=== PATIENT | female | born 1965 | race Caucasian/White ===

== ENCOUNTER 2017-05-08 18:00 | Emergency (ER) | payer BC ==
[2017-05-08] MEDS ORDERED: TYLENOL 325 MG PO ONE (18:42)
[2017-05-08] MEDS ORDERED: Sodium Chloride 0.9% 1000 ML 1,000 ML IV STA (18:42)
[2017-05-08] MEDS ORDERED: Sodium Chloride 0.9% 1000 ML 1,000 ML ONE (18:43)
[2017-05-08] MEDS ORDERED: TYLENOL 325 MG ONE (18:43)
[2017-05-08] MEDS ORDERED: PROVENTIL 2.5 MG/3 ML NEB IH ONE ×2 (18:51→18:58)
[2017-05-08] MEDS ORDERED: Vistaril 50 MG/ML IM ONE (18:52)
[2017-05-08] MEDS ORDERED: VISTARIL 100MG/2ML IM ONE (18:54)
--- NOTE | 2017-05-08 18:59 | ERPHSYRPT ---
- History of Present Illness Source: patient, family () Patient Subjective Stated Complaint: pt states she has had cough and fever for the past 24 hrs. pt states she has become worse over the last few hours. Triage Nursing Assessment: pt flushed, warm, dry. lung sounds clear and equal. pt febrile at this time. Timing/Duration: today Severity: severe Hx Tetanus, Diphtheria Vaccination/Date Given: Yes (unknown) Hx Influenza Vaccination/Date Given: No Hx Pneumococcal Vaccination/Date Given: No Immunizations Up to Date: Yes <RENETTA BEASLEY - Last Filed: 05/08/17 20:00> <FILEMON ALICIA - Last Filed: 05/08/17 20:56> - History of Present Illness Time Seen by Provider: 05/08/17 18:41 Physician History: CC: fever Hx: 51 y/o patient of KYREE Queen and DR Buckley. She has hx of vulvar CA. 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 She has fever, cough, diarrhea, sore throat, and myalgias all worsened today. She has fever and chills. She is a diabetic on metformin. She has chronic left hip pain and has seen Dr Buckley to arrange an injection. She fell in the tub today and the pain was worse before and after but no discreet injury. The pain in the left hip is severe. Limits ROM. Was able to walk with difficulty. (RENETTA BEASLEY) Allergies/Adverse Reactions: hydrocodone [From Vicodin] Allergy (Verified 05/08/17 18:26) Home Medications: Metformin HCl 500 mg [Glucophage 500 MG] 500 mg PO BID 12/25/15 [History] - Review of Systems Constitutional: Fever, Chills, Fatigue, Malaise, Weakness Eyes: No Symptoms Ears, Nose, & Throat: Throat Pain Respiratory: Cough Cardiac: No Chest Pain Abdominal/Gastrointestinal: Diarrhea, No Abdominal Pain, No Nausea, No Vomiting Genitourinary Symptoms: No Dysuria Musculoskeletal: Joint Pain (left hip), No Back Pain, No Neck Pain, No Injury, No Joint Redness Skin: No Rash Neurological: Headache, No Focal Weakness, No Parasthesia All Other Systems: Reviewed and Negative <RENETTA BEASLEY - Last Filed: 05/08/17 20:00> - Past Medical History Pertinent Past Medical History: Yes Neurological History: No Pertinent History ENT History: No Pertinent History Cardiac History: No Pertinent History Respiratory History: No Pertinent History Endocrine Medical History: Diabetes Type II Musculoskeletal History: No Pertinent History GI Medical History: No Pertinent History History: No Pertinent History Psycho-Social History: No Pertinent History Female Reproductive Disorders: Cervical Cancer, Uterine Cancer Other Medical History: vulvar cancer - Past Surgical History Past Surgical History: Yes Neuro Surgical History: No Pertinent History Cardiac: No Pertinent History Respiratory: No Pertinent History Gastrointestinal: Cholecystectomy Genitourinary: No Pertinent History Musculoskeletal: No Pertinent History Female Surgical History: Section, Tubal Ligation, Other Other Surgical History: ablation, vulvar biopsy - Social History Smoking Status: Never smoker Exposure to second hand smoke: Yes Drug Use: none Patient Lives Alone: No - Female History Hx Now: No <RENETTA BEASLEY - Last Filed: 05/08/17 20:00> - Physical Exam General Appearance: alert Eye Exam: PERRL/EOMI Ears, Nose, Throat Exam: dry mucous membranes Neck Exam: normal inspection, non-tender, supple, No meningismus, No midline tenderness Respiratory Exam: normal breath sounds, lungs clear, other (tachypneic hyperventilating) Cardiovascular Exam: regular rate/rhythm Gastrointestinal/Abdomen Exam: soft, No tenderness, No distention, No mass, No guarding Extremity Exam: normal inspection, limited range of motion (left hip), tenderness (left hip), No calf tenderness, No pedal edema Neurologic Exam: alert, oriented x 3, cooperative, sensation nml, No motor deficits Skin Exam: warm, dry, No rash SpO2 Interpretation: normal SpO2: 100 Oxygen Delivery: Room Air <BEASLEYRENETTAAVILA - Last Filed: 05/08/17 20:00> - Nursing Vital Signs Nursing Vital Signs: Initial Vital Signs Pulse Rate 110 H 05/08/17 18:21 Respiratory Rate 20 05/08/17 18:21 Blood Pressure 166/89 05/08/17 18:21 O2 Sat by Pulse Oximetry 100 05/08/17 18:21 Pain Scale Pain Intensity 10 - Course Nursing assessment & vital signs reviewed: Yes - Radiology Exams cxr X-ray Interpretation: Reviewed by me (mild RLL A/I) left hip/pelvis X-ray Interpretation: Reviewed by me (left hip osteophytes, no fx) <RENETTA BEASLEY - Last Filed: 05/08/17 20:00> Ordered Tests: Active Orders 24 hr Category Date Time Status Clean Catch Urine Specimen STAT Care 05/08/17 18:42 Active IV Insertion STAT Care 05/08/17 18:42 Active Pulse Oximetry (ED) STAT Care 05/08/17 18:50 Active CHEST 2 VIEWS (PA AND LAT) Stat Exams 05/08/17 18:50 Taken HIP UNI (2V) INCL PEL IF DONE Stat Exams 05/08/17 18:51 Taken CBC W DIFF Stat Lab 05/08/17 18:54 Completed CMP Stat Lab 05/08/17 18:54 Completed Lactic Acid Stat Lab 05/08/17 19:21 Results Manual Differential NC Stat Lab 05/08/17 18:54 Completed UA W/ MICROSCOPIC Stat Lab 05/08/17 18:48 Completed VENOUS BLOOD GAS Stat Lab 05/08/17 19:21 Results Respiratory Nebulizer STAT RT 05/08/17 18:52 Completed Medication Summary Discontinued Medications Generic Name Dose Route Start Last Admin Trade Name Enrico PRN Reason Stop Dose Admin Acetaminophen 975 mg 05/08/17 18:42 05/08/17 18:44 Tylenol 325 Mg PO 05/08/17 18:43 975 mg STAT ONE Administration Acetaminophen Confirm 05/08/17 18:43 Tylenol 325 Mg Administered 05/08/17 18:44 Dose 975 mg .ROUTE .STK-MED ONE Albuterol Sulfate 2.5 mg 05/08/17 18:51 05/08/17 19:02 Proventil 2.5 Mg/3 Ml Neb IH 05/08/17 18:52 2.5 mg STAT ONE Administration Albuterol Sulfate Confirm 05/08/17 18:58 Proventil 2.5 Mg/3 Ml Neb Administered 05/08/17 18:59 Dose 2.5 mg IH .STK-MED ONE Hydroxyzine HCl 50 mg 05/08/17 18:52 05/08/17 18:55 Vistaril 50 Mg/Ml IM 05/08/17 18:53 50 mg STAT ONE Administration Hydroxyzine HCl Confirm 05/08/17 18:54 Vistaril 100mg/2ml Administered 05/08/17 18:55 Dose 100 mg IM .STK-MED ONE Sodium Chloride 1,000 mls @ 999 mls/hr 05/08/17 18:42 05/08/17 18:44 Sodium Chloride 0.9% 1000 Ml IV 05/08/17 19:42 999 mls/hr .Q1H1M STA Administration Sodium Chloride Confirm 05/08/17 18:43 Sodium Chloride 0.9% 1000 Ml Administered 05/08/17 18:44 Dose 1,000 mls @ ud .ROUTE .STK-MED ONE Ketorolac Tromethamine 30 mg 05/08/17 20:48 Toradol 30 Mg Injection IV 05/08/17 20:49 STAT ONE Oseltamivir Phosphate 75 mg 05/08/17 20:47 Tamiflu 75mg Capsule PO 05/08/17 20:48 STAT ONE Lab/Rad Data: Laboratory Result Diagrams 05/08/17 18:54 05/08/17 18:54 Laboratory Results 05/08/17 05/08/17 05/08/17 Range/Units 19:21 19:13 18:54 WBC (4.0-10.5) K/mm3 RBC (4.1-5.4) M/mm3 Hgb (12.0-16.0) gm/dl Hct (35-47) % MCV (78-100) fl MCH (26-32) pg MCHC (32-36) g/dl RDW (11.5-14.0) % Plt Count (150-450) K/mm3 MPV (6-9.5) fl Absolute Neutrophils (1.4-6.9) Segmented Neutrophils (36.0-66.0) % Lymphocytes (Manual) (24-44) % Monocytes (Manual) (0.0-12.0) % Eosinophils (Manual) (0.00-3.0) % Differential Comment Platelet Estimate (NORMAL) VBG pH 7.59 H* (7.32-7.42) VBG pCO2 at Pat Temp 27 L (42-55) mm/Hg VBG pO2 at Pat Temp 17 L (25-40) mm/Hg VBG HCO3 25.9 (22-28) meq/L VBG O2 Sat (Pauline) 43.5 L (95-100) VBG Base Excess 4.9 H (-2.0-2.0) VBG Hemoglobin 12.5 VBG Carboxyhemoglobin 1.8 (0.0-6.9) % T HGB POC Potassium 3.0 L* (3.5-5.1) Sodium 138 (136-145) mEq/L Potassium 3.2 L (3.5-5.1) mEq/L Chloride 101 (98-107) mEq/L Carbon Dioxide 25.7 (21-32) mEq/L Anion Gap 14.6 (5-15) MEQ/L BUN 7 L (9-20) mg/dL Creatinine 0.78 (0.55-1.30) mg/dl Estimated GFR > 60 ML/MIN Glucose 159 H (70-110) MG/DL Lactic Acid 2.3 H (0.4-2.0) Calcium 9.3 (8.5-10.1) mg/dL Total Bilirubin 0.70 (0.2-1.0) mg/dL AST 20 (15-37) U/L ALT 20 (12-78) U/L Alkaline Phosphatase 103 (46-116) U/L Serum Total Protein 7.6 (6.4-8.2) gm/dL Albumin 4.0 (3.4-5.0) g/dL Ur Collection Type Urine Color (YELLOW) Urine Appearance (CLEAR) Urine pH (5-6) Ur Specific Reagan (1.005-1.025) Urine Protein (Negative) Urine Ketones (NEGATIVE) Urine Blood (0-5) Louie/ul Urine Nitrite (NEGATIVE) Urine Bilirubin (NEGATIVE) Urine Urobilinogen (0-1) mg/dL Ur Leukocyte Esterase (NEGATIVE) Urine Microscopic RBC (0-2) /HPF Ur Epithelial Cells (FEW) /HPF Urine Bacteria (NEGATIVE) /HPF Urine Culture Reflexed (NO) Urine Glucose (NEGATIVE) mg/dL Influenza Type A Ag POSITIVE (NEGATIVE) Influenza Type B Ag NEGATIVE (NEGATIVE) RSV (PCR) NEGATIVE (Negative) Specimen Received 05/08/17 05/08/17 Range/Units 18:54 18:48 WBC 3.5 L (4.0-10.5) K/mm3 RBC 4.31 (4.1-5.4) M/mm3 Hgb 12.9 (12.0-16.0) gm/dl Hct 38.9 (35-47) % MCV 90.3 (78-100) fl MCH 29.9 (26-32) pg MCHC 33.2 (32-36) g/dl RDW 12.9 (11.5-14.0) % Plt Count 172 (150-450) K/mm3 MPV 9.2 (6-9.5) fl Absolute Neutrophils 2.7 (1.4-6.9) Segmented Neutrophils 76 H (36.0-66.0) % Lymphocytes (Manual) 17 L (24-44) % Monocytes (Manual) 6 (0.0-12.0) % Eosinophils (Manual) 1 (0.00-3.0) % Differential Comment NORMAL Platelet Estimate NORMAL (NORMAL) VBG pH (7.32-7.42) VBG pCO2 at Pat Temp (42-55) mm/Hg VBG pO2 at Pat Temp (25-40) mm/Hg VBG HCO3 (22-28) meq/L VBG O2 Sat (Pauline) (95-100) VBG Base Excess (-2.0-2.0) VBG Hemoglobin VBG Carboxyhemoglobin (0.0-6.9) % T HGB POC Potassium (3.5-5.1) Sodium (136-145) mEq/L Potassium (3.5-5.1) mEq/L Chloride (98-107) mEq/L Carbon Dioxide (21-32) mEq/L Anion Gap (5-15) MEQ/L BUN (9-20) mg/dL Creatinine (0.55-1.30) mg/dl Estimated GFR ML/MIN Glucose (70-110) MG/DL Lactic Acid (0.4-2.0) Calcium (8.5-10.1) mg/dL Total Bilirubin (0.2-1.0) mg/dL AST (15-37) U/L ALT (12-78) U/L Alkaline Phosphatase (46-116) U/L Serum Total Protein (6.4-8.2) gm/dL Albumin (3.4-5.0) g/dL Ur Collection Type CLEAN CATCH Urine Color YELLOW (YELLOW) Urine Appearance CLEAR (CLEAR) Urine pH 9.0 (5-6) Ur Specific Reagan 1.005 (1.005-1.025) Urine Protein NEGATIVE (Negative) Urine Ketones NEGATIVE (NEGATIVE) Urine Blood TRACE NON-HEM (0-5) Louie/ul Urine Nitrite NEGATIVE (NEGATIVE) Urine Bilirubin NEGATIVE (NEGATIVE) Urine Urobilinogen NORMAL (0-1) mg/dL Ur Leukocyte Esterase NEGATIVE (NEGATIVE) Urine Microscopic RBC 0-2 (0-2) /HPF Ur Epithelial Cells RARE (FEW) /HPF Urine Bacteria RARE (NEGATIVE) /HPF Urine Culture Reflexed NO (NO) Urine Glucose 100 (NEGATIVE) mg/dL Influenza Type A Ag (NEGATIVE) Influenza Type B Ag (NEGATIVE) RSV (PCR) (Negative) Specimen Received [id number] <RENETTA BEASLEY - Last Filed: 05/08/17 20:00> <FILEMON ALICIA - Last Filed: 05/08/17 20:56> - Progress Progress Note: 05/08/17 20:03 Flu pending. IVF, neb, APAP, pain medication, vistaril given. Report to Dr Muhammad for further care and disposition. (RENETTA BEASLEY) 05/08/17 20:52 The hip and CXR do not show any acute findings. The patient will be given a dose of toradol prior to being discharged. The Influenza A is positive. Pt will be d/c home on tamiflu. (FILEMON ALICIA) <RENETTA BEASLEY - Last Filed: 05/08/17 20:00> - Departure Time of Disposition: 20:53 Departure Disposition: Home Critical Care Time: No <FILEMON ALICIA - Last Filed: 05/08/17 20:56> - Departure Clinical Impression: Influenza Hip pain Qualifiers: Laterality: left Qualified Code(s): M25.552 - Pain in left hip Condition: Stable Referrals: IMMANUEL QUEEN [Primary Care Provider] - Instructions: Flu, Adult (DC), Hip Pain (DC) Additional Instructions: Follow up with your primary care doctor in the next few days if you should have worsening hip pain, fever, chills, cough or shortness of breath. Prescriptions: Ketorolac Tromethamine [Toradol] 10 mg PO QID PRN #20 tablet PRN Reason: Pain Oseltamivir 75 mg [Tamiflu 75MG Capsule] 75 mg PO BID #9 cap
[2017-05-08 19:14] VITALS: O2SAT 100
[2017-05-08 19:18] LABS: ALKALINE PHOSPHATASE 103 U/L (46-116); ANION GAP 14.6 MEQ/L (5-15); BLOOD UREA NITROGEN 7 mg/dL (9-20); CHLORIDE 101 mEq/L (98-107); Calcium 9.3 mg/dL (8.5-10.1); Carbon Dioxide 25.7 mEq/L (21-32); Creatinine 1 0.78 mg/dl (0.55-1.30); EST GLOMERULAR FILTRATION RATE > 60 ML/MIN; Glucose 159 MG/DL (70-110); Potassium 3.2 mEq/L (3.5-5.1); SGOT/AST 20 U/L (15-37); SGPT/ALT 20 U/L (12-78); SODIUM 138 mEq/L (136-145); Total Protein 7.6 gm/dL (6.4-8.2)
[2017-05-08 19:27] LABS: Lactic Acid 2.3 (0.4-2.0); VBG BASE EXCESS 4.9 (-2.0-2.0); VBG CARBOXYHEMOGLOBIN 1.8 % T HGB (0.0-6.9); VBG HCO3- 25.9 meq/L (22-28); VBG HEMOGLOBIN 12.5; VBG O2 SATURATION 43.5 (95-100); VBG PCO2 27 mm/Hg (42-55); VBG PO2 17 mm/Hg (25-40)
[2017-05-08 19:28] LABS: VBG pH 7.59 (7.32-7.42)
[2017-05-08 19:29] LABS: Appearance CLEAR (CLEAR); Leukocyte Esterase NEGATIVE (NEGATIVE); Nitrite NEGATIVE (NEGATIVE); Protein,Urine Dip NEGATIVE (Negative); Specific Gravity 1.005 (1.005-1.025)
[2017-05-08 19:30] LABS: Bacteria RARE /HPF (NEGATIVE); Bilirubin NEGATIVE (NEGATIVE); Blood TRACE NON-HEM Ery/ul (0-5); Epithelial Cells RARE /HPF (FEW); Glucose 100 mg/dL (NEGATIVE); Ketones NEGATIVE (NEGATIVE); Urobilinogen NORMAL mg/dL (0-1)
[2017-05-08 19:31] LABS: Granulocyte Absolute (ANC) 2.83 (1.4-6.9); Hematocrit 38.9 % (35-47); Hemoglobin 12.9 gm/dl (12.0-16.0); Mean Cell Volume 90.3 fl (78-100); Mean Corpuscular Hemoglobin 29.9 pg (26-32); Mean Corpuscular Hgb Concent. 33.2 g/dl (32-36); Mean Platelet Volume 9.2 fl (6-9.5); Platelet Count 172 K/mm3 (150-450); Red Blood Count 4.31 M/mm3 (4.1-5.4); Red Cell Distribution Width 12.9 % (11.5-14.0); White Blood Count 3.5 K/mm3 (4.0-10.5)
[2017-05-08 19:42] LABS: Total Cells Counted 100
[2017-05-08 19:46] LABS: ABSOLUTE NEUTROPHILS 2.7 (1.4-6.9); Eosinophil 1 % (0.00-3.0); Lymphocytes 17 % (24-44); Monocyte 6 % (0.0-12.0); Neutrophils 76 % (36.0-66.0); Platelet Estimate NORMAL (NORMAL)
[2017-05-08 20:09] VITALS: BP 144/78; PULSE 105
[2017-05-08 20:21] LABS: INFLUENZA A POSITIVE (NEGATIVE); INFLUENZA B NEGATIVE (NEGATIVE); RESPIRATORY SYNCTIAL VIRUS NEGATIVE (Negative)
[2017-05-08] MEDS ORDERED: Tamiflu 75MG Capsule PO ONE ×2 (20:47→20:52)
[2017-05-08] MEDS ORDERED: TORAdol 30 mg Injection IV ONE (20:48)
[2017-05-08] MEDS ORDERED: TORAdol 30 mg Injection ONE (20:52)
--- NOTE | 2017-05-09 09:28 | XRAY ---
Indication: Cough. Comparison: None AP/lateral chest demonstrates normal heart and lungs with a left-sided Port-A-Cath. Bony thorax intact with mild degenerative changes. Comment: Preliminary interpretation was made by [facility]. No discrepancy.
--- NOTE | 2017-05-09 09:30 | XRAY ---
Indication: Pain following fall. Comparison: None AP pelvis and 2 views of the left hip demonstrates mild/moderate degenerative changes of both hips and visualized lower lumbar spine. Small left inferior pubic bone and left femur neck bone islands. No other bony, articular, or soft tissue abnormalities. Comment: Preliminary interpretation was made by [facility]. No discrepancy.
== END 2017-05-08 21:19 | disposition home or self-care (01) ==
LOC: ED 18:00
DX: J11.1 Influenza due to unidentified influenza virus with other respiratory manifestations (principal); M25.552 Pain in left hip; E11.9 Type 2 diabetes mellitus without complications; Z79.84 Long term (current) use of oral hypoglycemic drugs; W18.2XXA Fall in (into) shower or empty bathtub, initial encounter; R05 Cough; R50.9 Fever, unspecified
CPT/HCPCS: 36000; 36415; 71046; 73502; 80053; 81000; 82805; 83605; 85025; 87631; 94640; 96360; 96372; 96374; 96375; 99284; J1885; J3410; A9270-GY

== ENCOUNTER 2017-10-29 11:13 | Day surgery (SDC) | payer BC ==
--- NOTE | 2017-10-26 11:43 | HP ---
DATE OF SURGERY: 10/29/2017 ADMISSION DIAGNOSIS: ANTICIPATED PROCEDURE: EGD and colonoscopy. HISTORY OF PRESENT ILLNESS: The patient is 52 years old. She has iron deficiency anemia. She has had 40 radiation, 18 chemotherapies. She had vulvar cancer which was totally treated and is in remission to date that we know. PAST MEDICAL HISTORY: ALLERGIES: HYDROCODONE. MEDICATIONS: Per the chart. PAST SURGICAL HISTORY: Biopsy of vulvar cancer. SOCIAL HISTORY: Negative. FAMILY HISTORY: Negative. PHYSICAL EXAMINATION: VITAL SIGNS: Normal. CHEST: Clear. COR: Regular. ABDOMEN: Satisfactory. IMPRESSION: A 52 year-old with no recent endoscopic examination. History of iron deficiency anemia. Previous major chemo and radiation for vulvar cancer. PLAN: EGD and colonoscopy.
[~2017-10-29 11:13] MED LIST: Lactated Ringers 1,000 ML IV ONE; Lactated Ringers 1,000 ML IV SCH; XYLOCAINE 1% HCL 20 ML MDV ONE
[2017-10-29] MEDS ORDERED: Ketamine HCl 50 MG/ML IV ONE (11:14)
[2017-10-29] MEDS ORDERED: DIPRIVAN 200 MG/20 ML IV ONE (11:14)
--- NOTE | 2017-10-29 14:32 | OP ---
SURGERY DATE/TIME: 10/29/2017 6911 PREOPERATIVE DIAGNOSIS: Iron deficiency anemia possible GI. POSTOPERATIVE DIAGNOSIS: No specific source of bleeding was identified. PROCEDURES: 1) Colonoscopic examination complete to cecum with findings of radiation proctitis. 2) EGD with findings of mild gastritis, mild gastroesophageal reflux disease and small hiatal hernia. SURGEON: Vicente Navarro M.D. ANESTHESIA: MAC by Alex Morse CRNA. COMPLICATIONS: None. CONDITION: Stable. INDICATION: A patient requiring evaluation. DESCRIPTION OF PROCEDURE: Taken to the endoscopy. MAC sedation provided. Excellent anesthesia present. Scope introduced. Pharnyoesophageal junction normal. Esophagus normal down to gastroesophageal junction. There was grade 2/6 gastroesophageal reflux disease. There was a small hiatal hernia. 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 Pylorus satisfactory. Duodenal bulb satisfactory. Second portion satisfactory. Scope extended full length. There was no blood seen on exam. Scope withdrawn. Small hiatal hernia. The patient tolerated procedure satisfactory. Anal digital examination. There was a slight stricturing. The scope introduced. There was radiation proctitis. The scope advanced to the cecum. Base of the cecum, ileocecal valve, appendiceal orifice, ascending, hepatic, transverse, splenic, descending, sigmoid was all normal. In the lower rectum and anus, there was radiation proctitis. There was just a small amount of oozing from the rub from the scope. I do not believe there is ferry terminal agent bleeding from this.
[2017-10-29 14:47] VITALS: O2SAT 99
[2017-10-29 15:23] VITALS: BP 144/82; PULSE 61
== END 2017-10-29 15:27 | disposition home or self-care (01) ==
LOC: SDC 11:13
PROVIDERS: ATTEND Surgery
DX: D50.9 Iron deficiency anemia, unspecified (principal); K62.7 Radiation proctitis; K29.70 Gastritis, unspecified, without bleeding; K21.9 Gastro-esophageal reflux disease without esophagitis; K44.9 Diaphragmatic hernia without obstruction or gangrene; Z85.44 Personal history of malignant neoplasm of other female genital organs
CPT/HCPCS: 88305; J1642; J2704

== ENCOUNTER 2018-02-07 14:34 | Emergency (ER) | payer BC ==
[2018-02-07] MEDS ORDERED: Hydromorphone 1 mg/ml Ampule IM ONE (14:48)
[2018-02-07] MEDS ORDERED: Phenergan 25 MG INJ IM ONE (14:49)
[2018-02-07] MEDS ORDERED: Adacel Vial IM ONE ×2 (14:53→14:56)
[2018-02-07] MEDS ORDERED: Hydromorphone 1 mg/ml Ampule ONE (14:55)
[2018-02-07] MEDS ORDERED: Phenergan 25 MG INJ ONE (14:55)
--- NOTE | 2018-02-07 15:01 | ERPHSYRPT ---
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 Triage Nursing Assessment: pt is aox3, pupils perrl, pt afebrile, resps easy and non labored, radial pulses strong and equal, skin is pink warm dry. pt has 2nd degree chawla noted to the right dorsal thigh. area is blistrered. skin is reddened. burn measures 18cm x 12cm. skin is intact at this time. no drainage noted. 1st degree chawla noted to the bilateral feet. skin is reddened. Physician History: PATIENT SPILLED HOT FOOT ONTO BOTH FEET AND LEFT UPPER THIGH 30 MINUTES PRIOR ARRIVAL. PATIENT COMPLAINED OF SEVERE PAIN DISCOMFORT. Method of Injury: burn Occurred: just prior to arrival Quality: throbbing Severity of Pain-Max: severe Severity of Pain-Current: severe Lower Extremities Pain: leg: left, foot: left Modifying Factors: Improves With: movement Associated Symptoms: none Allergies/Adverse Reactions: hydrocodone [From Vicodin] Allergy (Intermediate, Verified 02/07/18 14:55) Rash states unknown I.V. chemo drug , caused a rash chemo Adverse Reaction (Intermediate, Uncoded 02/07/18 14:55) Rash Home Medications: Metformin HCl 500 mg [Glucophage 500 MG] 500 mg PO BID 12/25/15 [History] Cholecalciferol (Vitamin D3) [Vitamin D3] 2,000 units PO DAILY 10/19/17 [History ] Cyanocobalamin (Vitamin B-12) [Cyanocobalamin Injection] 1 ml IM UD 10/19/17 [ History] Ibuprofen 200 mg [Motrin 200 mg] 200 mg PO QHS PRN 10/19/17 [History] Hx Tetanus, Diphtheria Vaccination/Date Given: No Hx Influenza Vaccination/Date Given: No Hx Pneumococcal Vaccination/Date Given: No Immunizations Up to Date: Yes - Review of Systems Constitutional: No Fever, No Chills Eyes: No Symptoms Ears, Nose, & Throat: No Symptoms Respiratory: No Symptoms, No Cough, No Dyspnea Cardiac: No Symptoms, No Chest Pain, No Edema, No Syncope Abdominal/Gastrointestinal: No Abdominal Pain, No Nausea, No Vomiting, No Diarrhea Genitourinary Symptoms: No Dysuria Musculoskeletal: No Back Pain, No Neck Pain Skin: Other (CHAWLA OVER THIGH AND BOTH FEET), No Rash Neurological: No Dizziness, No Focal Weakness, No Sensory Changes Psychological: No Symptoms Endocrine: No Symptoms All Other Systems: Reviewed and Negative - Past Medical History Pertinent Past Medical History: Yes Neurological History: No Pertinent History ENT History: No Pertinent History Cardiac History: No Pertinent History Respiratory History: No Pertinent History Endocrine Medical History: Diabetes Type II Musculoskeletal History: Other GI Medical History: No Pertinent History History: No Pertinent History Psycho-Social History: No Pertinent History Female Reproductive Disorders: Cervical Cancer, Uterine Cancer Other Medical History: vulvar cancer, recent left hip surgery, carpal tunnel - Past Surgical History Past Surgical History: Yes Neuro Surgical History: No Pertinent History Cardiac: No Pertinent History Respiratory: No Pertinent History Gastrointestinal: Cholecystectomy Genitourinary: No Pertinent History Musculoskeletal: No Pertinent History, Other Female Surgical History: Section, Tubal Ligation, Other Other Surgical History: ablation, vulvar cancer, Left hip surgery - Social History Smoking Status: Never smoker Exposure to second hand smoke: Yes Drug Use: none Patient Lives Alone: No - Female History Hx Last Menstrual Period: years Hx Now: No (ablation) - Nursing Vital Signs Nursing Vital Signs: Initial Vital Signs Temperature 97.6 F 02/07/18 14:38 Pulse Rate 78 02/07/18 14:38 Respiratory Rate 20 02/07/18 14:38 Blood Pressure 136/82 02/07/18 14:38 O2 Sat by Pulse Oximetry 98 02/07/18 14:38 Pain Scale Pain Intensity 6 - Physical Exam General Appearance: moderate distress Eyes, Ears, Nose, Throat Exam: moist mucous membranes Neck Exam: non-tender, supple Cardiovascular/Respiratory Exam: chest non-tender, normal breath sounds, regular rate/rhythm, no respiratory distress Gastrointestinal/Abdominal Exam: non-tender, guarding Hips Exam: right: soft tissue tenderness (THERE IS A 2ND DEGREE BURN MEASURING 20CM X 12 CM OVER THE PROXIMAL TO MID LEFT THIGH LATERAL ASPECT WITH BULLAE), other (DIAMETER OF BURN 1%) Foot Exam: bilateral foot: soft tissue tenderness ( THERE ARE 1ST DEGREE CHAWLA OVER BOTH FEET PLANTAR ASPECT PROXIMAL 1ST METATARSAL EXTENDING TO DISTAL PHALANGX OF OF BOTH FEE), other (THERE ARE NO BULLAE FORMATION, TOTAL AREA 1.5%) SpO2: 98 Oxygen Delivery: Room Air Ordered Tests: Active Orders 24 hr Category Date Time Status Nursing [Miscellaneous Nursing Order] ROUTINE Care 02/07/18 14:51 Active Medication Summary Discontinued Medications Generic Name Dose Route Start Last Admin Trade Name Enrico PRN Reason Stop Dose Admin Bacitracin Zinc Confirm 02/07/18 15:57 Baciguent Packet Administered 02/07/18 15:58 Dose 15 gm .ROUTE .STK-MED ONE Diphtheria/Tetanus/Acell Pertussis 0.5 ml 02/07/18 14:53 02/07/18 14:58 Adacel Vial IM 02/07/18 14:54 0.5 ml .ONCE ONE Administration Diphtheria/Tetanus/Acell Pertussis Confirm 02/07/18 14:56 Adacel Vial Administered 02/07/18 14:57 Dose 0.5 ml IM .STK-MED ONE Hydromorphone HCl 1 mg 02/07/18 14:48 02/07/18 15:01 Hydromorphone 1 Mg/Ml Ampule IM 02/07/18 14:49 1 mg STAT ONE Administration Hydromorphone HCl Confirm 02/07/18 14:55 Hydromorphone 1 Mg/Ml Ampule Administered 02/07/18 14:56 Dose 1 mg .ROUTE .STK-MED ONE Promethazine HCl 12.5 mg 02/07/18 14:49 02/07/18 14:59 Phenergan 25 Mg Inj IM 02/07/18 14:50 12.5 mg STAT ONE Administration Promethazine HCl Confirm 02/07/18 14:55 Phenergan 25 Mg Inj Administered 02/07/18 14:56 Dose 25 mg .ROUTE .STK-MED ONE - Progress Progress Note: 02/07/18 15:11 DILAUDID 1MG WITH PHENERGAN 12.5MG IM, ADACEL 0.5MG IM APPLICATION OF BACITRACIN OINTMENT OVER CHAWLA 02/07/18 15:13 Counseled pt/family regarding: diagnosis, need for follow-up - Departure Time of Disposition: 16:10 Departure Disposition: Home Clinical Impression: 2ND DEGREE CHAWLA LEFT THIGH, 1ST DEGREE CHAWLA BILATERAL FOOOT Condition: Stable Critical Care Time: No Referrals: IMMANUEL ANSARI [Primary Care Provider] - Additional Instructions: APPLY BACITRACIN OINTMENT OVER LEFT THIGH AND BELOW BOTH FEET TWICE DAILY FOR 10 DAYS. AFTER CLEANING WITH SOAP AND WATER. TYLENOL # 3 EVERY 4-6 HOURS NEEDED. CONSULT YOUR PRIMAY CARE PROVIDER IN 4-5 DAYS FOR FOLLOWUP. RETURN TO EMERGENCY ROOM FOR INCREASING PAIN OR ONSET OF REDNESS AROUND CHAWLA. Prescriptions: Codeine Phosphate/APAP #3 [Tylenol #3 Tablet] 1 tab PO Q6H PRN PRN #16 tablet PRN Reason: Pain
[2018-02-07 15:53] VITALS: BP 158/88; PULSE 106; O2SAT 98
[2018-02-07] MEDS ORDERED: BACIGUENT PACKET ONE (15:57)
[2018-02-07] MEDS ORDERED: BACIGUENT PACKET TP ONE (16:04)
== END 2018-02-07 16:14 | disposition home or self-care (01) ==
LOC: ED 14:34
DX: T24.212A Burn of second degree of left thigh, initial encounter (principal); E11.9 Type 2 diabetes mellitus without complications; T25.122A Burn of first degree of left foot, initial encounter; T25.121A Burn of first degree of right foot, initial encounter; Z79.899 Other long term (current) drug therapy; Z79.84 Long term (current) use of oral hypoglycemic drugs; X10.1XXA Contact with hot food, initial encounter
CPT/HCPCS: 90471; 90715; 96372; 99284; J1170; J2550; A9270-GY

== ENCOUNTER 2018-02-14 17:30 | Emergency (ER) | payer BC ==
[2018-02-14 17:58] VITALS: O2SAT 99
--- NOTE | 2018-02-14 18:05 | ERPHSYRPT ---
- History of Present Illness Time Seen by Provider: 02/14/18 17:57 Source: patient Exam Limitations: no limitations Physician History: The patient is a 52-year-old female who accidentally spilled hot potato soup on her left thigh 1 week ago. She was seen in this ER on that Thursday. She had second degree orozco with blistering. The wound has sloughed the skin and has continued to heal. On she went to [facility] for a quick evaluation. She has continued to put bacitracin on the wound with gauze. She is here today for a follow-up check to make sure the wound is healing appropriately. She wants to go back to work tomorrow. She had a tetanus vaccination last week. Her past medical history is significant for diabetes. Timing/Duration: week(s) (1), sudden, improved Severity: moderate Location: extremities (left thigh) Possible Causes: other (thermal injury) Associated Symptoms: blisters, No numbness Allergies/Adverse Reactions: hydrocodone [From Vicodin] Allergy (Intermediate, Verified 02/07/18 14:55) Rash states unknown I.V. chemo drug , caused a rash chemo Adverse Reaction (Intermediate, Uncoded 02/07/18 14:55) Rash Home Medications: Metformin HCl 500 mg [Glucophage 500 MG] 500 mg PO BID 12/25/15 [History] Cholecalciferol (Vitamin D3) [Vitamin D3] 2,000 units PO DAILY 10/19/17 [History ] Cyanocobalamin (Vitamin B-12) [Cyanocobalamin Injection] 1 ml IM UD 10/19/17 [ History] Ibuprofen 200 mg [Motrin 200 mg] 200 mg PO QHS PRN 10/19/17 [History] Hx Tetanus, Diphtheria Vaccination/Date Given: No Hx Influenza Vaccination/Date Given: No Hx Pneumococcal Vaccination/Date Given: No - Review of Systems Constitutional: No Fever, No Chills Eyes: No Symptoms Ears, Nose, & Throat: No Symptoms Respiratory: No Cough, No Dyspnea Cardiac: No Chest Pain, No Edema, No Syncope Abdominal/Gastrointestinal: No Abdominal Pain, No Nausea, No Vomiting, No Diarrhea Genitourinary Symptoms: No Dysuria Musculoskeletal: No Back Pain, No Neck Pain Skin: Skin Lesions Neurological: No Dizziness, No Focal Weakness, No Sensory Changes Psychological: No Symptoms Endocrine: No Symptoms Hematologic/Lymphatic: No Symptoms Immunological/Allergic: No Symptoms All Other Systems: Reviewed and Negative - Past Medical History Pertinent Past Medical History: Yes Neurological History: No Pertinent History ENT History: No Pertinent History Cardiac History: No Pertinent History Respiratory History: No Pertinent History Endocrine Medical History: Diabetes Type II Musculoskeletal History: Other GI Medical History: No Pertinent History History: No Pertinent History Psycho-Social History: No Pertinent History Female Reproductive Disorders: Cervical Cancer, Uterine Cancer Other Medical History: vulvar cancer, recent left hip surgery, carpal tunnel - Past Surgical History Past Surgical History: Yes Neuro Surgical History: No Pertinent History Cardiac: No Pertinent History Respiratory: No Pertinent History Gastrointestinal: Cholecystectomy Genitourinary: No Pertinent History Musculoskeletal: No Pertinent History, Other Female Surgical History: Section, Tubal Ligation, Other Other Surgical History: ablation, vulvar cancer, Left hip surgery - Social History Smoking Status: Never smoker Exposure to second hand smoke: Yes Drug Use: none Patient Lives Alone: No - Physical Exam General Appearance: no apparent distress, alert Eye Exam: PERRL/EOMI, eyes nml inspection Ears, Nose, Throat Exam: normal ENT inspection, pharynx normal, moist mucous membranes Neck Exam: normal inspection, non-tender, supple, full range of motion Respiratory Exam: normal breath sounds, lungs clear, No respiratory distress Cardiovascular Exam: regular rate/rhythm, normal heart sounds Gastrointestinal/Abdomen Exam: soft, mass, No tenderness Pelvic Exam: not done Rectal Exam: not done Back Exam: normal inspection, normal range of motion, No CVA tenderness, No vertebral tenderness Extremity Exam: orozco (healing 2nd degree burn to anterior left thigh), swelling (mild), No parasthesia Neurologic Exam: alert, oriented x 3, cooperative, normal mood/affect, sensation nml, No motor deficits Skin Exam: normal color, warm, dry SpO2 Interpretation: normal Oxygen Delivery: Room Air - Departure Time of Disposition: 18:09 Departure Disposition: Home Clinical Impression: Wound healing well on examination Condition: Stable Critical Care Time: No Referrals: IMMANUEL ANSARI [Primary Care Provider] - Additional Instructions: You have a healing burn to your left thigh. Silvadene cream and a pad was placed on it today in the ER. Place Silvadene and change the pad daily. Stop applying bacitracin to the wound. Began Keflex 500 mg 4 times a day for 10 days. Return to work tomorrow. Follow-up with your primary medical doctor as needed. Prescriptions: Cephalexin Mh 500 mg [Keflex 500 mg] 1 cap PO QID #40 capsule
[2018-02-14] MEDS ORDERED: SILVADENE 50 GM TP ONE ×2 (18:11→18:12)
[2018-02-14 18:36] VITALS: BP 127/89; PULSE 71
== END 2018-02-14 18:36 | disposition home or self-care (01) ==
LOC: ED 17:30
DX: Z04.3 Encounter for examination and observation following other accident (principal); T24.212D Burn of second degree of left thigh, subsequent encounter; X12.XXXD Contact with other hot fluids, subsequent encounter
CPT/HCPCS: 99283; A9270-GY

== ENCOUNTER 2018-04-01 13:11 | Day surgery (SDC) | payer BC ==
[~2018-04-01 13:11] MED LIST changes: -Lactated Ringers 1,000 ML IV ONE
[2018-04-01 13:47] VITALS: BP 131/65; PULSE 83; O2SAT 97
== END 2018-04-01 13:54 | disposition home or self-care (01) ==
LOC: SDC 13:11
PROVIDERS: ATTEND Surgery
DX: Z53.09 Procedure and treatment not carried out because of other contraindication (principal)
CPT/HCPCS: 84703; G0463

== ENCOUNTER 2018-05-13 09:43 | Day surgery (SDC) | payer BC ==
[~2018-05-13 09:43] MED LIST changes: -Lactated Ringers 1,000 ML IV SCH
[2018-05-13] MEDS ORDERED: VERSED 5 MG/5 ML IV ONE (09:44)
[2018-05-13] MEDS ORDERED: DEMEROL 50 MG IV ONE (09:44)
[2018-05-13] MEDS ORDERED: Sodium Chloride 0.9% 1000 ML 1,000 ML ONE (10:05)
[2018-05-13] MEDS ORDERED: Sodium Chloride 0.9% 1000 ML 1,000 ML IV SCH (10:15)
[2018-05-13 12:16] VITALS: BP 157/83; PULSE 66; O2SAT 100
--- NOTE | 2018-05-13 13:01 | OP ---
SURGERY DATE/TIME: 05/13/2018 1048 PREOPERATIVE DIAGNOSIS: Patient completed therapy and completed use for the port. POSTOPERATIVE DIAGNOSIS: Patient completed therapy and completed use for the port. PROCEDURE: Port removal. SURGEON: Vicente Navarro M.D. ANESTHESIA: IV sedation. 50 minutes monitored. COMPLICATIONS: None. CONDITION: Stable. INDICATION: A patient requiring port removal. DESCRIPTION OF PROCEDURE: Taken to surgery. Routine prep and drape. Time out performed. IV sedation titrated. Oximeter kept over 90%. 1% lidocaine. The skin subcu at the port identified. It was taken out in its entirety along with two sutures and along with the entire catheter and tip. Hemostasis satisfactory. Closed with 3-0, 4-0 Vicryl and Steri-Strips. The patient tolerated the procedure satisfactorily.
== END 2018-05-13 12:10 | disposition home or self-care (01) ==
LOC: SDC 09:43
PROVIDERS: ATTEND Surgery
DX: Z45.2 Encounter for adjustment and management of vascular access device (principal); E11.9 Type 2 diabetes mellitus without complications; Z79.84 Long term (current) use of oral hypoglycemic drugs
CPT/HCPCS: 82962; J2175; J2250

== ENCOUNTER 2019-03-14 17:36 | Emergency (ER) | payer BC ==
[2019-03-14] MEDS ORDERED: Hydromorphone 1 mg/ml Ampule IM ONE (18:03)
--- NOTE | 2019-03-14 18:03 | ERPHSYRPT ---
- History of Present Illness Time Seen by Provider: 03/14/19 17:50 Source: patient Exam Limitations: no limitations Physician History: Patient fell on her knees after tripping, causing her left upper leg to go into her hip joint yesterday. Patient has had severe pain since, but has not been evaluated or treated by anyone. Patient has a left total hip arthroplasty. Timing/Duration: yesterday Occured at: home Context: fall Quality: stabbing, throbbing Hip Pain Location: hip (L) Severity of Pain-Max: severe Severity of Pain-Current: severe Modifying Factors: Worsens With: movement Symptoms prior to fall: none Associated Symptoms: trouble walking, No fatigue, No fever, No groin pain, No insomnia, No lumps, No muscle aches, No pain radiating to knees Allergies/Adverse Reactions: hydrocodone [From Vicodin] Allergy (Intermediate, Verified 03/14/19 18:01) Rash states unknown I.V. chemo drug , caused a rash chemo Adverse Reaction (Intermediate, Uncoded 03/14/19 18:01) Rash Home Medications: Ibuprofen 200 mg [Motrin 200 mg] 200 mg PO QHS PRN 10/19/17 [History] Torsemide 10 mg DAILY 03/14/19 [History] glyBURIDE [Glyburide] 5 mg DAILY 03/14/19 [History] Hx Tetanus, Diphtheria Vaccination/Date Given: No Hx Influenza Vaccination/Date Given: No Hx Pneumococcal Vaccination/Date Given: No - Review of Systems Constitutional: No Fever, No Chills Ears, Nose, & Throat: No Epistaxis, No Mouth Swelling, No Loose Teeth, No Painful Swallowing Respiratory: No Cough, No Dyspnea Cardiac: No Chest Pain, No Edema, No Syncope Abdominal/Gastrointestinal: No Abdominal Pain, No Nausea, No Vomiting (had brief episodes yesterday, none today), No Diarrhea (had brief episodes yesterday , none today), No Hematemesis, No Hematochezia, No Melena Genitourinary Symptoms: No Dysuria, No Hematuria, No Flank Pain Musculoskeletal: Fall, Joint Pain (left hip only), No Arthralgias, No Back Pain , No Neck Pain, No Joint Swelling, No Myalgias Skin: No Rash Neurological: No Dizziness, No Focal Weakness, No Headache, No Sensory Changes Psychological: No Emotional Lability Endocrine: No Excessive Sweating Hematologic/Lymphatic: No Easy Bleeding, No Easy Bruising All Other Systems: Reviewed and Negative - Past Medical History Pertinent Past Medical History: Yes Neurological History: No Pertinent History ENT History: No Pertinent History Cardiac History: No Pertinent History Respiratory History: No Pertinent History Endocrine Medical History: Diabetes Type II Musculoskeletal History: Other GI Medical History: No Pertinent History History: No Pertinent History Psycho-Social History: No Pertinent History Female Reproductive Disorders: Cervical Cancer, Uterine Cancer Other Medical History: vulvar cancer, left hip surgery, carpal tunnel - Past Surgical History Past Surgical History: Yes Neuro Surgical History: No Pertinent History Cardiac: No Pertinent History Respiratory: No Pertinent History Gastrointestinal: Cholecystectomy Genitourinary: No Pertinent History Musculoskeletal: No Pertinent History, Other Female Surgical History: Section, Tubal Ligation, Other Other Surgical History: ablation, vulvar cancer, Left hip surgery - Social History Smoking Status: Never smoker Exposure to second hand smoke: Yes Drug Use: none Patient Lives Alone: No - Nursing Vital Signs Nursing Vital Signs: Initial Vital Signs Temperature 97.2 F 03/14/19 17:51 Pulse Rate 108 H 03/14/19 17:51 Respiratory Rate 22 03/14/19 17:51 Blood Pressure 148/87 03/14/19 17:51 O2 Sat by Pulse Oximetry 96 03/14/19 17:51 Pain Scale Pain Intensity 10 - Physical Exam General Appearance: no apparent distress, alert Eye Exam: PERRL/EOMI, eyes nml inspection, No scleral icterus Ears, Nose, Throat Exam: pharynx normal, moist mucous membranes, No pharyngeal erythema Neck Exam: normal inspection, non-tender, supple, No full range of motion, No meningismus Respiratory Exam: normal breath sounds, lungs clear, No chest tenderness, No respiratory distress, No accessory muscle use, No crackles/rales, No rhonchi, No wheezing Cardiovascular Exam: regular rate/rhythm, normal heart sounds, normal peripheral pulses, capillary refill <2 sec, No edema Gastrointestinal Exam: soft, No normal bowel sounds, No tenderness, No distention, No guarding, No rebound Back Exam: normal inspection, normal range of motion, No CVA tenderness, No vertebral tenderness Extremity Exam: normal inspection, pelvis stable, tenderness (movement of left hip), No calf tenderness, No deformities, No lacerations, No swelling Neurologic Exam: alert, oriented x 3, cooperative, batcher operator II-XII nml as tested, sensation nml, No motor deficits Skin Exam: normal color, warm, dry, No rash SpO2 Interpretation: normal O2 Delivery: Room Air - Course Nursing assessment & vital signs reviewed: Yes - Radiology Exams Hip X-ray Interpretation: Interpreted by me, Reviewed by me, Negative, No Fracture, Nml Alignment, Nml Soft Tissues Ordered Tests: Active Orders 24 hr Category Date Time Status HIP UNI (2V) INCL PEL IF DONE Stat Exams 03/14/19 18:56 Taken Medication Summary Discontinued Medications Generic Name Dose Route Start Last Admin Trade Name Freq PRN Reason Stop Dose Admin Diphenhydramine HCl 25 mg 03/14/19 18:04 03/14/19 18:18 Benadryl 50 Mg/Ml IM 03/14/19 18:05 25 mg STAT ONE Administration Diphenhydramine HCl Confirm 03/14/19 18:16 Benadryl 50 Mg/Ml Administered 03/14/19 18:17 Dose 50 mg .ROUTE .STK-MED ONE Hydromorphone HCl 2 mg 03/14/19 18:03 03/14/19 18:18 Hydromorphone 1 Mg/Ml Ampule IM 03/14/19 18:04 2 mg STAT ONE Administration Hydromorphone HCl Confirm 03/14/19 18:17 Hydromorphone 1 Mg/Ml Ampule Administered 03/14/19 18:18 Dose 1 mg .ROUTE .STK-MED ONE Hydromorphone HCl Confirm 03/14/19 18:20 Hydromorphone 1 Mg/Ml Ampule Administered 03/14/19 18:21 Dose 1 mg .ROUTE .STK-MED ONE Ondansetron HCl 4 mg 03/14/19 18:04 03/14/19 18:20 Zofran Odt 4 Mg PO 03/14/19 18:05 4 mg STAT ONE Administration Ondansetron HCl Confirm 03/14/19 18:17 Zofran Odt 4 Mg Administered 03/14/19 18:18 Dose 4 mg .ROUTE .STK-MED ONE - Progress Progress: improved Progress Note: 03/14/19 19:52 Pain has significantly improved after IM Dilaudid. Patient is neurovascularly intact distal to the pain/injury area. Counseled pt/family regarding: diagnosis, need for follow-up, rad results - Departure Departure Disposition: Home Clinical Impression: Elevated blood pressure reading without diagnosis of hypertension Hip pain Qualifiers: Laterality: left Qualified Code(s): M25.552 - Pain in left hip Sprain of left hip Qualifiers: Encounter type: initial encounter Qualified Code(s): S73.102A - Unspecified sprain of left hip, initial encounter Condition: Good Critical Care Time: No Referrals: ALIREZA CLINE [Primary Care Provider] - 03/15/19 (Keep your appointment with your Orthopedic Surgeon you have scheduled for 03/15/2019) Instructions: Contusion (DC), Preventing Falls, Hip Pain (DC) Additional Instructions: Your left hip and pelvis x-ray were read as negative by the emergency department physician. We will notify you if the radiologist interprets anything different changes your course of treatment. Keep your appointment with the orthopedic surgeon performed your surgery that you have scheduled on . Return immediately back to the Emergency Department if any worsening pain, loss of function the left lower extremity, feel like it is out of place, or any other concerning signs or symptoms that were not present on today's and return visit for immediate reevaluation in the emergency department. Prescriptions: Etodolac 400 mg [Lodine 400 mg] 400 mg PO BID PRN PRN #20 tablet PRN Reason: Pain
[2019-03-14] MEDS ORDERED: ZOFRAN ODT 4 MG PO ONE (18:04)
[2019-03-14] MEDS ORDERED: BENADRYL 50 MG/ML IM ONE (18:04)
[2019-03-14] MEDS ORDERED: BENADRYL 50 MG/ML ONE (18:16)
[2019-03-14] MEDS ORDERED: ZOFRAN ODT 4 MG ONE (18:17)
[2019-03-14] MEDS ORDERED: Hydromorphone 1 mg/ml Ampule ONE ×2 (18:17→18:20)
[2019-03-14 19:52] VITALS: BP 117/74; PULSE 100; O2SAT 92
--- NOTE | 2019-03-15 09:17 | XRAY ---
Indication: Pain following fall. Comparison: May 08, 2017. AP pelvis and 2 views of the left hip demonstrates interval left total hip arthroplasty with intact bipolar prosthesis/acetabular screw. Stable mild degenerative changes right hip/lower lumbar spine and left inferior pubic bone island. No other bony, articular, or soft tissue abnormalities.
== END 2019-03-14 20:03 | disposition home or self-care (01) ==
LOC: ED 17:36
DX: R03.0 Elevated blood-pressure reading, without diagnosis of hypertension (principal); W01.10XA Fall on same level from slipping, tripping and stumbling with subsequent striking against unspecified object, initial encounter
CPT/HCPCS: 73502; 96372; 99284; J1170; J1200; Q0162

== ENCOUNTER 2019-03-23 02:28 | Emergency (ER) | payer BC ==
[2019-03-23 02:50] VITALS: BP 100/85; PULSE 92; O2SAT 100
[2019-03-23] MEDS ORDERED: SUBLIMAZE 100 MCG/2 ML IM ONE (03:43)
[2019-03-23] MEDS ORDERED: Golytely Solution 4000 ML ONE (03:46)
--- NOTE | 2019-03-23 05:56 | ERPHSYRPT ---
- History of Present Illness Time Seen by Provider: 03/23/19 02:40 Source: patient, family Exam Limitations: no limitations Patient Subjective Stated Complaint: pt constipated for two weeks after she fell and hurt her left hip. pt states she had has a yeast infection and states that her constipation has been worsening over the last two weeks. pt states she is also having a scant amount of blood in stolls since straining so hard. Triage Nursing Assessment: pt rates pain in abdomen at 10/10 at this time. Physician History: ppatient presents with severe constipation for 2 weeks. She has a history of vulvar cancer and has received 18 chemotherapy sessions and 40 radiation sessions. She is on oxycodone for pain which is probably the etiology of her constipation. Timing/Duration: week(s) (2) Severity: severe Modifying Factors: Improves With: nothing Associated Symptoms: abdominal pain Allergies/Adverse Reactions: hydrocodone [From Vicodin] Allergy (Intermediate, Verified 03/23/19 02:48) Rash states unknown I.V. chemo drug , caused a rash chemo Adverse Reaction (Intermediate, Uncoded 03/23/19 02:48) Rash Home Medications: Ibuprofen 200 mg [Motrin 200 mg] 200 mg PO QHS PRN 10/19/17 [History] Torsemide 10 mg DAILY 03/14/19 [History] glyBURIDE [Glyburide] 5 mg DAILY 03/14/19 [History] Hx Tetanus, Diphtheria Vaccination/Date Given: No Hx Influenza Vaccination/Date Given: No Hx Pneumococcal Vaccination/Date Given: No - Review of Systems Constitutional: No No Symptoms Abdominal/Gastrointestinal: Abdominal Pain, Constipation (rreview he does and he is they were and is in) - Past Medical History Pertinent Past Medical History: Yes Neurological History: No Pertinent History ENT History: No Pertinent History Cardiac History: No Pertinent History Respiratory History: No Pertinent History Endocrine Medical History: Diabetes Type II Musculoskeletal History: Other GI Medical History: No Pertinent History History: No Pertinent History Psycho-Social History: No Pertinent History Female Reproductive Disorders: Cervical Cancer, Uterine Cancer Other Medical History: vulvar cancer, left hip surgery, carpal tunnel - Past Surgical History Past Surgical History: Yes Neuro Surgical History: No Pertinent History Cardiac: No Pertinent History Respiratory: No Pertinent History Gastrointestinal: Cholecystectomy Genitourinary: No Pertinent History Musculoskeletal: No Pertinent History, Other Female Surgical History: Section, Tubal Ligation, Other Other Surgical History: ablation, vulvar cancer, Left hip surgery - Social History Smoking Status: Never smoker Exposure to second hand smoke: Yes Drug Use: none Patient Lives Alone: No - Nursing Vital Signs Nursing Vital Signs: Initial Vital Signs Temperature 97.8 F 03/23/19 02:35 Pulse Rate 92 H 03/23/19 02:35 Respiratory Rate 18 03/23/19 02:35 Blood Pressure 100/85 03/23/19 02:35 O2 Sat by Pulse Oximetry 100 03/23/19 02:35 Pain Scale Pain Intensity 10 - Physical Exam General Appearance: moderate distress Eye Exam: PERRL/EOMI, eyes nml inspection Ears, Nose, Throat Exam: normal ENT inspection, TMs normal, pharynx normal, moist mucous membranes Neck Exam: normal inspection, non-tender, supple, full range of motion Respiratory Exam: normal breath sounds, lungs clear, No respiratory distress Cardiovascular Exam: regular rate/rhythm (tthe he is a), normal heart sounds, normal peripheral pulses Gastrointestinal/Abdomen Exam: normal bowel sounds, tenderness Back Exam: other (ffecal impaction) Extremity Exam: normal inspection Neurologic Exam: alert, oriented x 3 Skin Exam: normal color Lymphatic Exam: No adenopathy SpO2 Interpretation: normal SpO2: 100 O2 Delivery: Room Air - Radiology Exams Abdomen X-ray Interpretation: Interpreted by me, Other (rrectal impaction and constipation) Ordered Tests: Active Orders 24 hr Category Date Time Status Enema STAT Care 03/23/19 03:42 Ordered KUB Stat Exams 03/23/19 03:15 Taken - Progress Progress: improved - Departure Departure Disposition: Home Clinical Impression: Constipation Condition: Stable Critical Care Time: No Referrals: ALIREZA CLINE [Primary Care Provider] - Instructions: Constipation, Adult (DC)
--- NOTE | 2019-03-23 09:04 | XRAY ---
Indication: Constipation. Comparison: None KUB nonacute and nonobstructed with little scattered colonic fecal debris and incidental splenic calcified granulomas and previous cholecystectomy. Solid organs unremarkable. Osseous structures intact with mild degenerative changes throughout the spine and right hip. Previous left total hip arthroplasty. Lung bases clear with a few calcified splenic granulomas. Impression: Nonacute abdomen with chronic features.
[2019-03-23] MEDS ORDERED: Golytely Solution 4000 ML PO ONE ×2 (14:00)
== END 2019-03-23 04:19 | disposition home or self-care (01) ==
LOC: ED 02:28
DX: K59.00 Constipation, unspecified (principal); K56.49 Other impaction of intestine
CPT/HCPCS: 74018; 99283; A9270-GY

== ENCOUNTER 2020-05-19 13:34 | Emergency (ER) | payer BC ==
[2020-05-19 13:50] VITALS: O2SAT 100
--- NOTE | 2020-05-19 14:11 | ERPHSYRPT ---
- History of Present Illness Time Seen by Provider: 05/19/20 14:10 Source: patient Exam Limitations: no limitations Patient Subjective Stated Complaint: pt here for pain to right leg, she states there has been a hard lump or a year in right thigh and now states there is sw elling and tenderness to that area Triage Nursing Assessment: pt alert, face mask in place. resp easy, skin w/d/p. pt has scarring froma hip sugery where tnderness is, Physician History: pt here for pain to left thigh, she states there has been a hard lump or a year in left thigh and now states there is swelling and tenderness to that area Method of Injury: unknown Occurred: last week Severity of Pain-Max: moderate Severity of Pain-Current: moderate Lower Extremities Pain: thigh: left Allergies/Adverse Reactions: hydrocodone [From Vicodin] Allergy (Intermediate, Verified 05/19/20 13:51) Rash states unknown I.V. chemo drug , caused a rash chemo Adverse Reaction (Intermediate, Uncoded 05/19/20 13:51) Rash Home Medications: Ibuprofen 200 mg [Motrin 200 mg] 200 mg PO QHS PRN 10/19/17 [History] glyBURIDE [Glyburide] 5 mg DAILY 03/14/19 [History] Calcium Carbonate/Vitamin D3 [Vitamin D-3 400 Units Tablet] 1 ea DAILY 05/19/20 [History] Hx Tetanus, Diphtheria Vaccination/Date Given: No Hx Influenza Vaccination/Date Given: No Hx Pneumococcal Vaccination/Date Given: No Immunizations Up to Date: Yes Travel Risk - International Travel Have you traveled outside of the country in past 3 weeks: No - Coronavirus Screening Are you exhibiting any of the following symptoms?: No Close contact with a COVID-19 positive Pt in past 14-21 Days: No - Review of Systems Constitutional: No Fever, No Chills Eyes: No Symptoms Ears, Nose, & Throat: No Symptoms Respiratory: No Cough, No Dyspnea Cardiac: No Chest Pain, No Edema, No Syncope Abdominal/Gastrointestinal: No Abdominal Pain, No Nausea, No Vomiting, No Diarrhea Genitourinary Symptoms: No Dysuria Musculoskeletal: Other (left thigh pain), No Back Pain, No Neck Pain, No Fall Skin: No Rash Neurological: No Dizziness, No Focal Weakness, No Sensory Changes Psychological: No Symptoms Endocrine: No Symptoms All Other Systems: Reviewed and Negative - Past Medical History Pertinent Past Medical History: Yes Neurological History: No Pertinent History ENT History: No Pertinent History Cardiac History: No Pertinent History Respiratory History: No Pertinent History Endocrine Medical History: Diabetes Type II Musculoskeletal History: Other GI Medical History: No Pertinent History History: No Pertinent History Psycho-Social History: No Pertinent History Female Reproductive Disorders: Other Other Medical History: vulvar cancer, left hip surgery, carpal tunnel - Past Surgical History Past Surgical History: Yes Neuro Surgical History: No Pertinent History Cardiac: No Pertinent History Respiratory: No Pertinent History Gastrointestinal: Cholecystectomy Genitourinary: No Pertinent History Musculoskeletal: No Pertinent History, Other Female Surgical History: Section, Tubal Ligation, Other Other Surgical History: ablation, vulvar cancer, Left hip surgery - Social History Smoking Status: Never smoker Exposure to second hand smoke: Yes Drug Use: none Patient Lives Alone: Yes - Female History Hx Last Menstrual Period: psot Hx Now: No - Nursing Vital Signs Nursing Vital Signs: Initial Vital Signs Temperature 97.8 F 05/19/20 13:44 Pulse Rate 84 05/19/20 13:44 Respiratory Rate 18 05/19/20 13:44 Blood Pressure 155/84 05/19/20 13:44 O2 Sat by Pulse Oximetry 100 05/19/20 13:44 Pain Scale Pain Intensity 6 - Physical Exam General Appearance: alert Eyes, Ears, Nose, Throat Exam: moist mucous membranes Neck Exam: non-tender, supple Cardiovascular/Respiratory Exam: chest non-tender, normal breath sounds, regular rate/rhythm, no respiratory distress Gastrointestinal/Abdominal Exam: non-tender, guarding Back Exam: normal inspection, No vertebral tenderness Hips Exam: right: non-tender, left: soft tissue tenderness (left thigh) Neuro/Tendon Exam: normal sensation, normal motor functions Mental Status Exam: alert, oriented x 3, cooperative Skin Exam: normal color, warm, dry SpO2: 100 - Course Nursing assessment & vital signs reviewed: Yes - CT Exams Lower Extremity CT Interpretation: Tele-radiologist Report (abscess with fluid collection. ) Ordered Tests: Active Orders 24 hr Category Date Time Status LOWER EXTREMITY WO CONTRAST [CT] Stat Exams 05/19/20 14:09 Taken CBC W DIFF Stat Lab 05/19/20 14:40 Completed CMP Stat Lab 05/19/20 14:40 Completed Lactic Acid Stat Lab 05/19/20 14:08 Completed EKG ONCE RT 05/19/20 14:25 Completed Lab/Rad Data: Laboratory Result Diagrams 05/19/20 14:40 05/19/20 14:40 Laboratory Results 05/19/20 05/19/20 05/19/20 Range/Units 14:40 14:40 14:08 WBC 4.8 (4.0-10.5) K/mm3 RBC 4.16 (4.1-5.4) M/mm3 Hgb 12.1 (12.0-16.0) gm/dl Hct 37.5 (35-47) % MCV 90.1 (78-100) fl MCH 29.1 (26-32) pg MCHC 32.3 (32-36) g/dl RDW 13.3 (11.5-14.0) % Plt Count 279 (150-450) K/mm3 MPV 9.1 (7.5-11.0) fl Gran % 74.1 H (36.0-66.0) % Eos # (Auto) 0.04 (0-0.5) Absolute Lymphs (auto) 1.01 (1.0-4.6) Absolute Monos (auto) 0.19 (0.0-1.3) Lymphocytes % 21.0 L (24.0-44.0) % Monocytes % 3.9 (0.0-12.0) % Eosinophils % 0.8 (0.00-5.0) % Basophils % 0.2 (0.0-0.4) % Absolute Granulocytes 3.57 (1.4-6.9) Basophils # 0.01 (0-0.4) Sodium 132 L (137-145) mmol/L Potassium 3.9 (3.5-5.1) mmol/L Chloride 95 L (98-107) mmol/L Carbon Dioxide 32 H (22-30) mmol/L Anion Gap 9.9 (5-15) MEQ/L BUN 6 L (7-17) mg/dL Creatinine 0.40 L (0.52-1.04) mg/dL Estimated GFR > 60.0 ML/MIN Glucose 403 H (74-106) mg/dL Lactic Acid 1.6 (0.4-2.0) Calcium 9.2 (8.4-10.2) mg/dL Total Bilirubin 0.60 (0.2-1.3) mg/dL AST 16 (14-36) U/L ALT 15 (0-35) U/L Alkaline Phosphatase 143 H (38-126) U/L Serum Total Protein 7.3 (6.3-8.2) g/dL Albumin 3.8 (3.5-5.0) g/dL - Progress Progress: improved, pain not gone completely Counseled pt/family regarding: diagnosis, need for follow-up, rad results - Departure Departure Disposition: Home Clinical Impression: Abscess of thigh Condition: Stable Critical Care Time: No Referrals: BRIA JERONIMO [Primary Care Provider] - [facility] M-F [id number] Instructions: Skin Abscess Additional Instructions: You have a abscess in your thigh where you had a previous surgery. You must follow-up with Ortho clinic on Thursday at 8:00 and they will guide you to further follow-up with Dr. Buckley.. Please put ice pack on affected area and take antibiotic as prescribed. It is very important that you should follow-up with Ortho clinic on Thursday morning Prescriptions: Clindamycin HCl 300 mg PO QID #40 capsule
[2020-05-19 14:38] VITALS: BP 144/84; PULSE 76
[2020-05-19 14:42] LABS: Absolute Neutrophil Ct (ANC) 3.57 (1.4-6.9); BASOPHIL % 0.2 % (0.0-0.4); Basophil (Absolute #) 0.01 (0-0.4); Eosinophil % 0.8 % (0.00-5.0); Eosinophil (Absolute #) 0.04 (0-0.5); Hematocrit 37.5 % (35-47); Hemoglobin 12.1 gm/dl (12.0-16.0); Lymphocyte (Absolute #) 1.01 (1.0-4.6); Mean Cell Volume 90.1 fl (78-100); Mean Corpuscular Hemoglobin 29.1 pg (26-32); Mean Corpuscular Hgb Concent. 32.3 g/dl (32-36); Mean Platelet Volume 9.1 fl (7.5-11.0); Monocyte (Absolute #) 0.19 (0.0-1.3); Monocytes % 3.9 % (0.0-12.0); Neutrophil % 74.1 % (36.0-66.0); Platelet Count 279 K/mm3 (150-450); Red Blood Count 4.16 M/mm3 (4.1-5.4); Red Cell Distribution Width 13.3 % (11.5-14.0); White Blood Count 4.8 K/mm3 (4.0-10.5)
[2020-05-19 14:53] LABS: ALBUMIN 3.8 g/dL (3.5-5.0); ALKALINE PHOSPHATASE 143 U/L (38-126); ANION GAP 9.9 MEQ/L (5-15); BLOOD UREA NITROGEN 6 mg/dL (7-17); CHLORIDE 95 mmol/L (98-107); Calcium 9.2 mg/dL (8.4-10.2); Carbon Dioxide 32 mmol/L (22-30); EST GLOMERULAR FILTRATION RATE > 60.0 ML/MIN; Glucose 403 mg/dL (74-106); Potassium 3.9 mmol/L (3.5-5.1); SGOT/AST 16 U/L (14-36); SGPT/ALT 15 U/L (0-35); SODIUM 132 mmol/L (137-145); Total Protein 7.3 g/dL (6.3-8.2)
--- NOTE | 2020-05-19 19:57 | XRAY ---
Indication: Left hip and upper thigh pain/swelling 2 days. Multiple contiguous axial images obtained through the left hip without contrast. Sagittal and coronal reformatted images obtained. Comparison: None There has been total hip arthroplasty with intact bipolar prosthesis and single acetabular screw. Posterior tuberosity demonstrates 1 cm described lesion favoring bone island. No acute fracture or suspicious bony lesions. Visualized noncontrasted soft tissues demonstrates 5.1 x 2.9 x 1.1 cm deep soft tissue fluid collection with air bubbles just anterior to the prosthesis. Additional more superficial anterior lateral 7.4 x 3.2 x 4.0 cm fluid collection with air bubbles and possible sinus/fistulous tract to the skin surface. Both fluid collections worrisome for abscesses. Lack of IV contrast precludes further characterization. Small inguinal lymph nodes presumably reactive, largest 1 x 1.5 cm. Visualized pelvic contents are unremarkable. Impression: Left total hip arthroplasty with intact prosthesis. 2 suspicious fluid collections as detailed worrisome for abscesses with possible cutaneous sinus/fistulous tract. Comment: Preliminary interpretation was made by [facility]. No critical discrepancy.
== END 2020-05-19 15:59 | disposition home or self-care (01) ==
LOC: ED 13:34
DX: L02.416 Cutaneous abscess of left lower limb (principal)
CPT/HCPCS: 36415; 73700; 80053; 83605; 85025; 99283

== ENCOUNTER 2021-02-21 15:38 | Emergency (ER) | payer BC ==
--- NOTE | 2021-02-21 15:52 | ERPHSYRPT ---
- History of Present Illness Time Seen by Provider: 02/21/21 15:50 Source: patient Exam Limitations: no limitations Physician History: This is a 55-year-old white female who underwent a left hip surgery yesterday by Dr. Buckley, an orthopedic surgeon. Patient is not having much pain. However, prior to arrival she noticed slow oozing of blood from the bandage site on the left hip. Patient did begin taking anticoagulation therapy which she does not recall the name of. She is on oral antibiotic therapy. She tried to call the office of Dr. Buckley but there was no answer. Therefore she came to the emergency department here. She is in no distress. She arrives with vital signs stable. Timing/Duration: today Quality: other (No pain) Location: other (Left hip) Possible Causes: other (Postoperative) Allergies/Adverse Reactions: hydrocodone [From Vicodin] Allergy (Intermediate, Verified 02/21/21 15:48) Rash states unknown I.V. chemo drug , caused a rash when taken after 18 doses. iv contrast dye Allergy (Intermediate, Uncoded 02/21/21 15:48) Rash chemo Adverse Reaction (Intermediate, Uncoded 02/21/21 15:48) Rash Home Medications: glyBURIDE [Glyburide] 5 mg PO BID 03/14/19 [History] Atorvastatin Calcium [Lipitor] 20 mg PO DAILY 02/21/21 [History] Cyclobenzaprine HCl 10 mg PO DAILY 02/21/21 [History] Oxycodone HCl 5 mg PO DAILY 02/21/21 [History] Sitagliptin Phosphate [Januvia] 100 mg PO DAILY 02/21/21 [History] Hx Tetanus, Diphtheria Vaccination/Date Given: No Hx Influenza Vaccination/Date Given: No Hx Pneumococcal Vaccination/Date Given: No Travel Risk - International Travel Have you traveled outside of the country in past 3 weeks: No - Coronavirus Screening Are you exhibiting any of the following symptoms?: No Close contact with a COVID-19 positive Pt in past 14-21 Days: No - Review of Systems Constitutional: No Symptoms Eyes: No Symptoms Ears, Nose, & Throat: No Symptoms Respiratory: No Symptoms Cardiac: No Symptoms Abdominal/Gastrointestinal: No Symptoms Genitourinary Symptoms: No Symptoms Musculoskeletal: No Symptoms Skin: Other (Mild bleeding from postoperative skin incision left hip) Neurological: No Symptoms Psychological: No Symptoms Endocrine: No Symptoms Hematologic/Lymphatic: No Symptoms Immunological/Allergic: No Symptoms All Other Systems: Reviewed and Negative - Past Medical History Pertinent Past Medical History: Yes Neurological History: No Pertinent History ENT History: No Pertinent History Cardiac History: No Pertinent History Respiratory History: No Pertinent History Endocrine Medical History: Diabetes Type II Musculoskeletal History: Other GI Medical History: No Pertinent History History: No Pertinent History Psycho-Social History: No Pertinent History Female Reproductive Disorders: Other Other Medical History: vulvar cancer had chemo, left hip surgery 2017, - Past Surgical History Past Surgical History: Yes Neuro Surgical History: No Pertinent History Cardiac: No Pertinent History Respiratory: No Pertinent History Gastrointestinal: Cholecystectomy Genitourinary: No Pertinent History Musculoskeletal: No Pertinent History, Other Female Surgical History: Section, Tubal Ligation, Other Other Surgical History: ablation uterine, vulvar cancer, Left hip surgery - Social History Smoking Status: Never smoker Exposure to second hand smoke: Yes Drug Use: none Patient Lives Alone: Yes - Nursing Vital Signs Nursing Vital Signs: Initial Vital Signs Temperature 98.1 F 02/21/21 15:48 Pulse Rate 90 02/21/21 15:48 Respiratory Rate 16 02/21/21 15:48 Blood Pressure 92/66 02/21/21 15:48 O2 Sat by Pulse Oximetry 98 02/21/21 15:48 Pain Scale Pain Intensity 2 - Physical Exam General Appearance: no apparent distress, alert, anxiety Eye Exam: PERRL/EOMI, eyes nml inspection Ears, Nose, Throat Exam: normal ENT inspection, moist mucous membranes Neck Exam: normal inspection, non-tender, supple, full range of motion Respiratory Exam: normal breath sounds, lungs clear, airway intact, No chest tenderness, No respiratory distress Cardiovascular Exam: regular rate/rhythm, normal heart sounds, normal peripheral pulses Gastrointestinal/Abdomen Exam: soft, normal bowel sounds, No tenderness Pelvic Exam: not done Rectal Exam: not done Back Exam: normal inspection, normal range of motion, No CVA tenderness, No vertebral tenderness Extremity Exam: other (The postoperative bandage was removed under sterile conditions as possible. There was no active bleeding at this time. There is a small area of the distal portion of the wound approximately 4 cm proximal to the most caudal and that I was able to express a small amount of bleeding but this stopped. ) Skin Exam: warm, dry, other (After removal of the dressing the area was clean dr ied benzoin was applied nonstick gauze was then applied and to Tegaderms were applied) Lymphatic Exam: No adenopathy SpO2 Interpretation: normal O2 Delivery: Room Air - Course Nursing assessment & vital signs reviewed: Yes Ordered Tests: Active Orders 24 hr Category Date Time Status CBC W DIFF Stat Lab 02/21/21 16:30 Completed PROTIME WITH INR Stat Lab 02/21/21 16:30 Completed Lab/Rad Data: Laboratory Result Diagrams 02/21/21 16:30 Laboratory Results 02/21/21 02/21/21 Range/Units 16:30 16:30 WBC 7.8 (4.0-10.5) K/mm3 RBC 3.45 L (4.1-5.4) M/mm3 Hgb 10.4 L (12.0-16.0) gm/dl Hct 32.2 L (35-47) % MCV 93.3 (78-100) fl MCH 30.1 (26-32) pg MCHC 32.3 (32-36) g/dl RDW 14.3 H (11.5-14.0) % Plt Count 197 (150-450) K/mm3 MPV 9.4 (7.5-11.0) fl Gran % 79.8 H (36.0-66.0) % Eos # (Auto) 0.01 (0-0.5) Absolute Lymphs (auto) 1.24 (1.0-4.6) Absolute Monos (auto) 0.33 (0.0-1.3) Lymphocytes % 15.9 L (24.0-44.0) % Monocytes % 4.2 (0.0-12.0) % Eosinophils % 0.1 (0.00-5.0) % Basophils % 0.0 (0.0-0.4) % Absolute Granulocytes 6.20 (1.4-6.9) Basophils # 0 (0-0.4) PT 13.4 H (9.4-12.5) SECONDS INR 1.14 (0.8-3.0) - Progress Progress: improved Counseled pt/family regarding: lab results, diagnosis, need for follow-up - Departure Departure Disposition: Home Clinical Impression: Postoperative bleeding from incision, Visit for wound check Condition: Stable Critical Care Time: No Referrals: BRIA DHILLON [Primary Care Provider] - Follow up/PCP as directed Additional Instructions: Stop your anticoagulation therapy. Do not restart this medication until you speak with Dr. Buckley. Sponge bath. Do not shower until cleared by Dr. Buckley. Call Dr. Buckley's office today to make a follow-up appointment for further eval uation and management. Continue your antibiotic treatment.
[2021-02-21 16:44] LABS: INR 1.14 (0.8-3.0); PROTIME 13.4 SECONDS (9.4-12.5)
[2021-02-21 16:51] LABS: Basophil (Absolute #) 0 (0-0.4); Eosinophil % 0.1 % (0.00-5.0); Eosinophil (Absolute #) 0.01 (0-0.5); Hematocrit 32.2 % (35-47); Hemoglobin 10.4 gm/dl (12.0-16.0); Lymphocyte (Absolute #) 1.24 (1.0-4.6); Lymphocytes % 15.9 % (24.0-44.0); Mean Cell Volume 93.3 fl (78-100); Mean Corpuscular Hemoglobin 30.1 pg (26-32); Mean Corpuscular Hgb Concent. 32.3 g/dl (32-36); Mean Platelet Volume 9.4 fl (7.5-11.0); Monocyte (Absolute #) 0.33 (0.0-1.3); Monocytes % 4.2 % (0.0-12.0); Neutrophil % 79.8 % (36.0-66.0); Platelet Count 197 K/mm3 (150-450); Red Blood Count 3.45 M/mm3 (4.1-5.4); Red Cell Distribution Width 14.3 % (11.5-14.0); White Blood Count 7.8 K/mm3 (4.0-10.5)
== END 2021-02-21 17:37 | disposition home or self-care (01) ==
LOC: ED 15:38
DX: M96.830 Postprocedural hemorrhage of a musculoskeletal structure following a musculoskeletal system procedure (principal); Z79.01 Long term (current) use of anticoagulants; Z79.899 Other long term (current) drug therapy
CPT/HCPCS: 36415; 85025; 85610; 99283